=== PATIENT | male | born 1990 | race Caucasian/White ===

== ENCOUNTER 2021-03-07 09:44 | Outpatient (REF) | payer OTHER, SELFPAY ==
[2021-03-07 11:33] LABS: Appearance Urine CLEAR; Color Urine YELLOW; Glucose Urine UA NEG (NEG); Leukocyte Esterase Urine NEG (NEG); Nitrite Urine NEG (NEG); Specific Gravity - Urine >= 1.030 (1.005-1.025); Urine Blood NEG (NEG); Urine Ketones NEG (NEG); Urine Protein NEG (NEG-TRACE)
[2021-03-07 13:45] LABS: CT PCR NOT DETECTED (Not Detect.); NG PCR NOT DETECTED (Not Detect.)
== END 2021-03-07 09:45 | disposition home or self-care (01) ==
LOC: HO.WFDLNP 09:44
PROVIDERS: Visit Provider Family Medicine
DX: N50.811 Right testicular pain (principal); Z11.3 Encounter for screening for infections with a predominantly sexual mode of transmission
CPT/HCPCS: 81003; 87491; 87591

== ENCOUNTER 2021-03-12 08:51 | Outpatient (REF) | payer OTHER, SELFPAY ==
--- NOTE | ~2021-03-12 | US_ITS ---
EXAMINATION: US SCROTUM CLINICAL INFORMATION: Right testicular pain. COMPARISON: None TECHNIQUE: A sonogram of the scrotum was performed assessing damon-scale appearance and color Doppler flow. Spectral Doppler analysis of the arterial and venous flow were performed in the testes bilaterally. FINDINGS: RIGHT: Right testicle measures 5.39 x 2.38 x 3.71 cm, volume 24.9 mL. No focal testicular parenchymal lesions are visualized. Spectral Doppler analysis of the arterial and venous flow is normal in the right testis. Right epididymal head is normal in size. No right hydrocele seen. There is a small varicocele visualized. Right epididymal Doppler flow is normal. LEFT: Left testicle measures 5.60 x 2.34 x 4.43 cm, volume 30.3 mL. No focal testicular parenchymal lesions are visualized. Spectral Doppler analysis of the arterial and venous flow is normal in the left testis. Left epididymal head is normal in size. There is a small hydrocele with debris and a small left varicocele. Left epididymal Doppler flow is normal. US/US scrotum IMPRESSION: Normal right testes and epididymis with normal arterial and venous vascular flow on Doppler. Bilateral varicoceles and a small hydrocele with echogenic debris.
== END 2021-03-12 08:52 | disposition home or self-care (01) ==
LOC: HO.US 08:51
PROVIDERS: PCP Family Medicine
DX: N50.811 Right testicular pain (principal)
CPT/HCPCS: 76870

== ENCOUNTER 2023-11-06 09:35 | Outpatient (AMB) | payer OTHER, SELFPAY ==
--- NOTE | 2023-11-06 09:38 | MHC.OFFWIV ---
Intake Vital Signs 11/06/23 09:44 Height 5 ft 10 in Weight 145 lb 8 oz BMI 20.9 BP 110/72 Blood Pressure Location Rt brachial Position Sitting Respiration 16 Pulse 97 Pulse Source Pulse Oximeter Temp 97.3 F Temp Source Oral Pulse Oximetry (%) 96 Oxygen Delivery Method Room Air Intake Visit Reasons: est/left shoulder pain Intake Note: patient here c/o left shoulder pain Patient Tobacco Use Status: Never used Tobacco Allergies No Known Allergies Allergy (Verified 11/06/23 09:57) Medication List - Last Reconciled 11/06/23 by Rozina Marshall CNP No Known Home Meds Do you need a note to return to daycare/school/sports/work: No HPI HPI Comments History of Present Illness Details 33-year-old male presents with complaints of left shoulder pain slight intermittent pain with clicking/popping sound with certain movements. He notes that his symptoms have been ongoing since he injured right shoulder while playing rugby 2 weeks ago. His opponent ran into his shoulder. He endorses full ROM of the shoulder. No redness, swelling, or deformity. No tingling, numbness, or loss of sensation. He took ibuprofen 600 mg once, for 2 days without relief. [facility] Surgical History (Updated 03/07/21 @ 08:55 by GUILHERME Brown) No pertinent past surgical history Family History Mother No problems noted. Father No problems noted. Sister Substance abuse Maternal Uncle Substance abuse Social History (Updated 03/07/21 @ 08:56 by GUILHERME Brown) Housing: Apartment Alcohol intake: current Alcohol intake frequency: a few times a week Patient Tobacco Use Status: Never used Tobacco e-Cigarette/Vaping Use: Never Used Second Hand Smoke Exposure: No service: No Current occupational status: employed Cognitive needs: No Hearing needs: No Vision needs: No Review of Systems Const Details: Const Denies chills, Denies fatigue, Denies fever(s), Denies headache(s) and Denies weakness ENT Denies change in vision, Denies dizziness, Denies headache(s), Denies hearing loss, Denies nasal congestion, Denies sinus pain, Denies sinus pressure and Denies sore throat Resp Denies cough, Denies dyspnea, Denies wheezing and Denies other (shortness of breath) Cardio Denies chest pain, Denies lightheadedness, Denies dyspnea and Denies other (palpitations) Neuro Denies dizziness, Denies headache(s), Denies numbness, Denies tingling and Denies weakness Musc Reports as per HPI Endo Denies fatigue Aller/Immun Denies wheezing Physical Exam Vital Signs: Last Vital Signs Temp 97.3 F 11/06/23 09:44 Pulse 97 11/06/23 09:44 Resp 16 11/06/23 09:44 BP 110/72 11/06/23 09:44 Pulse Ox 96 11/06/23 09:44 Oxygen Delivery Method Room Air 11/06/23 09:44 BMI result Body Mass Index 20.9 Const Other: Const General: well developed; No acute distress Nutritional Appearance: well nourished Orientation/consciousness: patient oriented x3 HEENT Head: Yes normocephalic and Yes atraumatic Eyes General: appearance normal, both eyes and all related structures Pupils: Equal, round and reactive pupils present EOM: EOMs intact bilaterally Resp Effort & Inspection: normal respiratory effort Auscultation: clear to auscultation bilaterally Cardio Rate: regular rate Rhythm: regular rhythm Heart sounds: S1 normal heart sound present, S2 normal heart sound present, no gallops, no murmurs and no rubs Bruits: no abdominal aortic bruits and no carotid bruits Neuro General: patient oriented x3 and gait normal, no focal neuro deficit Cranial nerves: Yes Equal, round and reactive pupils present Musc Full ROM of the right shoulder, mild tenderness to palpation of the left trapezius muscle, no overt injury/trauma Psych Affect: normal affect Assessment & Plan Assessment & Plan (1) Muscle strain of shoulder region: Code(s): S46.919A - Strain of unspecified muscle, fascia and tendon at shoulder and upper arm level, unspecified arm, initial encounter Plan: Full ROM of the right shoulder, mild tenderness to palpation of the left trapezius muscle, no overt injury/trauma Likely left trapezius muscle strain May take ibuprofen 600 mg every 6-8 hours as needed. Encouraged to take with food Warm/cool compresses encouraged Follow-up with worsening or new symptoms Verbalized understanding and agreed with the plan Coding Level of Care Code Est Pt Level 3 (09847) Diagnoses Muscle strain of shoulder region S46.919A
[2023-11-06 09:44] VITALS: BP 110/72; PULSE 97; RESP 16; TEMP 36.3; O2SAT 96; BMI 20.9
== END 2023-11-06 11:17 | disposition home or self-care (01) ==
PROVIDERS: PCP Family Medicine; Visit Provider Nurse Practitioner Family
DX: S46.919A Strain of unspecified muscle, fascia and tendon at shoulder and upper arm level, unspecified arm, initial encounter (principal)

== ENCOUNTER → 2023-11-06 09:35 | Outpatient (BNVA) | payer OTHER, SELFPAY | PROVIDERS: PCP Family Medicine | DX: S46.911A Strain of unspecified muscle, fascia and tendon at shoulder and upper arm level, right arm, initial encounter (principal) | CPT/HCPCS: 99212 ==

== ENCOUNTER 2024-01-20 11:27 | Outpatient (AMB) | payer OTHER, SELFPAY ==
--- NOTE | 2024-01-20 11:47 | MHC.PC.OV ---
Vital Signs 01/20/24 11:49 Height 5 ft 10 in Weight 148 lb 6 oz BMI 21.3 BP 120/58 L Blood Pressure Location Lt brachial Position Sitting Respiration 14 Pulse 68 Pulse Source Pulse Oximeter Pulse Oximetry (%) 98 Oxygen Delivery Method Room Air Intake Visit Reasons: PainOnShoulder Intake Note: left shoulder pain due to a injury playing rugby Allergies No Known Allergies Allergy (Verified 01/20/24 11:49) Tobacco use date assessed: 03/07/21 HPI PainOnShoulder HPI Details 33 y/o male presents today with complaints of L shoulder pain. Had seen Rozina Marshall 11/06/23 - was recommended to take ibuprofen, warm/cool compresses were encouraged. Had noted he had injured L shoulder playing rugby. Someone had ran right unto his shoulder. Denies any numbness/weakness of hands. Pain has not improved with warm/cool compresses. HPI Comments History of Present Illness Details Documentation assistance for Adi Min MD, was provided by Onesimo Carmichael, [employer] on 01/20/2024 at 12:35 PM EST. I, Dr. Min, have read, observed, and verified documentation. ON LICENSE OF [facility] Surgical History (Updated 03/07/21 @ 08:55 by GUILHERME Brown) No pertinent past surgical history Family History Mother No problems noted. Father No problems noted. Sister Substance abuse Maternal Uncle Substance abuse Social History (Updated 03/07/21 @ 08:56 by GUILHERME Brown) Housing: Apartment Alcohol intake: current Alcohol intake frequency: a few times a week Patient Tobacco Use Status: Never used Tobacco e-Cigarette/Vaping Use: Never Used Second Hand Smoke Exposure: No service: No Current occupational status: employed Cognitive needs: No Hearing needs: No Vision needs: No Questionnaire PHQ-9 Over the last 2 weeks, how often have you been bothered by any of the following problems? 1. Little interest or pleasure in doing things: several days 2. Feeling down, depressed, or hopeless: several days 3. Trouble falling or staying asleep, or sleeping too much: several days 4. Feeling tired or having little energy: not at all 5. Poor appetite or overeating: not at all 6. Feeling bad about yourself - or that you are a failure or have let yourself or your family down: not at all 9. Thoughts that you would be better off or of hurting yourself in some way: not at all Source: Developed by Drs. Contreras Santiago, Siria Sneed, Easton Schmitt and colleagues, with an educational lyn from [employer]. Thrive Questionnaire Date Thrive assessed: 01/13/24 I am a: Patient What is your living situation today?: I have a steady place to live Within the past 12 months, did the food you bought not last and you didn't have the money to get more?: Never true Within the past 12 months, did you worry whether your food would run out before you got money to buy more?: Never true Do you have trouble paying for medicines?: No Do you have trouble getting transportation to medical appointments?: No Do you have trouble paying your heating and electricity bill?: No Do you have trouble taking care of your child, family member or friend?: No Do you have trouble with day-to-day activities such as bathing, preparing meals, shopping, managing finances, etc.?: No Are you currently unemployed and looking for a job?: Yes Are you interested in more education?: No Please select the resources that you would like help with: None Currently or been in a relationship where the following occur: No concerns reported THRIVE Score: 0 AUDIT C Alcohol Use Questionnaire (AUDIT-C) 1. How often do you have a drink containing alcohol?: 2-3 times a week 2. How many drinks containing alcohol do you have on a typical day when you are drinking?: 1 or 2 3. How often do you have six or more drinks on one occasion?: Monthly Total Score: 5 LIZZ-7 AMB Questionnaire LIZZ-7 Date LIZZ - 7 assessed: 03/07/21 Feeling nervous, anxious, or on edge: 0 = Not at all Not being able to stop or control worryin = Not at all Worrying too much about different things: 1 = Several days Trouble relaxin = Several days Being so restless that it is hard to sit still: 1 = Several days Becoming easily annoyed or irritable: 1 = Several days Feeling afraid as if something awful might happen: 0 = Not at all Total LIZZ-7 score (0-4 normal; 5-9 mild; 10-14 moderate; 15-21 severe): 4 Source: Developed by Drs. Contreras Santiago, Siria Sneed, Easton Schmitt and colleagues, with an educational lyn from [employer]. Review of Systems Const Denies chills, Denies fatigue, Denies fever(s), Denies headache(s) and Denies weakness ENT Denies dizziness and Denies headache(s) Card Denies dyspnea Resp Denies cough, Denies dyspnea, Denies wheezing and Denies other (shortness of breath) Musc Details: L shoulder pain Denies numbness and Denies tingling Neuro Denies dizziness, Denies headache(s), Denies numbness, Denies tingling and Denies weakness Psych Denies anxiety and Denies depression Endo Denies fatigue Aller/Immun Denies wheezing Physical exam (Primary Care) Vital Signs: Last Vital Signs Pulse 68 01/20/24 11:49 Resp 14 01/20/24 11:49 BP 120/58 L 01/20/24 11:49 Pulse Ox 98 01/20/24 11:49 Oxygen Delivery Method Room Air 01/20/24 11:49 BMI result Body Mass Index 21.3 Tobacco/Smoking Status: Tobacco use Status Tobacco use date assessed 03/07/21 01/20/24 11:52 Patient Tobacco Use Status Never used Tobacco 01/20/24 11:52 e-Cigarette/Vaping Use Never Used 01/20/24 11:52 Thrive Assessment: Date of Thrive Assessment Date Thrive assessed 01/13/24 01/20/24 11:52 Currently or been in a relationship where the following occur: No concerns reported Const General: well developed; No acute distress Nutritional Appearance: well nourished Orientation/consciousness: patient oriented x3 HENMT Head: Yes normocephalic and Yes atraumatic Eyes General: appearance normal, both eyes and all related structures Pupils: Equal, round and reactive pupils present EOM: EOMs intact bilaterally Resp Effort & Inspection: normal respiratory effort Neuro General: patient oriented x3 and gait normal Cranial nerves: Yes Equal, round and reactive pupils present Psych Affect: normal affect Coding Level of Care Code Est Pt Level 3 (05190) Diagnoses Left shoulder pain M25.512 Assessment & Plan Assessment & Plan (1) Left shoulder pain: Code(s): M25.512 - Pain in left shoulder Category: Medical Plan Ongoing?left?shoulder?pain?after?injury?playing?rugby. Good?range?motion. ?Normal?sensation,?motor?and?circulation?at?distal?fingertips. Start?physical?therapy Check?x-ray Give?him?a?script?for?meloxicam?and?cyclobenzaprine Follow-up?in?4-6?weeks.??If?not?improving?or?worsening?will?refer?to?ortho?and?consider?advanced imaging Orders: Orders PT Evaluation and Treatment Today M25.512 - Pain in left shoulder XR shoulder LT min 2V Today M25.512 - Pain in left shoulder PT Evaluation and Treatment Today M25.512 - Pain in left shoulder Medications: New meloxicam 15 mg PO DAILY 30 days 30 tabs 2RF cyclobenzaprine 10 mg PO Q12H 10 days PRN 20 tabs 0RF muscle spasm
[2024-01-20 11:49] VITALS: BP 120/58; PULSE 68; RESP 14; O2SAT 98; BMI 21.3
--- OUTSIDE RECORDS SUMMARY | 2024-01-27 13:25 | XMS_ITS | Data Portability ---
Author Organization [facility] [id number] Address [address] [place] [id number] Assessment Encounter Date Assessment Date Assessment LastModified by Organization Details LastModified Time 11/03/2023 11/03/2023 How can you care for yourself at home? If your doctor put a splint on your finger, wear the splint as directed. Don't remove it until your doctor says it's okay. If your fingers are taped together, make sure that the tape is snug. But it shouldn't be so tight that the fingers get numb or tingle. You can loosen the tape if it's too tight. If you need to retape your fingers, always put padding between the fingers before you put on the new tape. Put ice or a cold pack on your finger for 10 to 20 minutes at a time. Try to do this every 1 to 2 hours for the first 3 days (when you are awake) or until the swelling goes down. Put a thin cloth between the ice and your skin. Prop up your hand on a pillow when you ice it or anytime you sit or lie down during the next 3 days. Try to keep it above the level of your heart. This will help reduce swelling. Be safe with medicines. Read and follow all instructions on the label. If the doctor gave you a prescription medicine for pain, take it as prescribed. If you are not taking a prescription pain medicine, ask your doctor if you can take an [id number]-[id number] r medicine. If your doctor recommends exercises, do them as directed. ??? Seek immediate medical care if: ??? You have new or worse pain. Your finger is cool or pale or changes color. Your finger is tingly, weak, or numb. [email or web address] Not available 11/03/2023 14:14:45 Plan of Treatment Reminders Order Date Submit Date Provider Last Modified By Organization Details Last Modified Time Details Appointments None recorded. Lab None recorded. Referral None recorded. Procedures None recorded. Surgeries None recorded. Imaging XR, finger(s), 2 or more view 2023 [facility], [address] [place], [address], 14:37:55 Medication Orders naproxen 500 mg tablet 2023 024 [id number], [address] [place], [address], 14:14:48 Patient TargetsNo targets recorded. Patient InstructionsNo instructions recorded. Reason for Referral None Reported. Results Created Date Observation Date Name Description Value Unit Range Abnormal Flag Note LastModifiedBy Organization Detail LastModifiedTime 11/03/19 24 11/03/2023 XR, finge r(s), 2 or more view No observ ation record ed. [facility] [address] [place], [address], 11/04/2023 11:40:31 11/03/19 XR, finge r(s), 2 or more view No observ ation record ed. [facility] [address] [place], [address], 11/03/2023 19:03:10 Result Notes None recorded. Problems Name Problem SNOMED Code Status Onset Date Resolution Date Notes Provider Name and Address Organization Details Recorded Time Pain in finger of right hand 042338731653432 Active 2023 NANCY DUEÑAS NP [address] [place], [phone], [place] [facility] 13:55:33 Sprain of ligament of finger of right hand 478025078692717 01 Active 2023 NANCY DUEÑAS NP [address] [place], [address] [facility] - [facility] 4 14:13:54 Problem Notes None recorded. Procedures Surgical History None recorded. Imaging Results Imaging Date Name Status LastModified by Organiz ation Details LastModified Time 11/03/2023 XR, finger(s), 2 or more view completed frantz [facility] [address] [place], [address], 11/04/2023 11:40:31 11/03/2023 XR, finger(s), 2 or more view completed colette [facility] [address] [place], [address], 11/03/2023 19:03:10 Procedure Notes None recorded. Medical Equipment None Reported. Allergies No known drug allergies Medications Name Sig Start Date Stop Date Status Note LastModified by Organization Details LastModified Time IBU 800 mg tablet TAKE ONE TABLET BY MOUTH THREE TIMES A DAY NEEDED FOR PAIN 11/02 completed Not Available Not Available Not Available amoxicillin 500 mg tablet TAKE ONE TABLET BY MOUTH THREE TIMES A DAY UNTIL GONE 11/02 completed Not Available Not Available Not Available naproxen 500 mg tablet Take 1 tablet twice a day by oral route for 5 days. 2023 active Not Available Not Available Not Avai lable Vitals Date Recorded Body height Body mass index (BMI) Body weight Oxygen saturation Oxygen saturation in Arterial blood by Pulse oximetry Heart rate Respiratory rate Body temperature Systolic blood pressure Diastolic blood pressure Provider Name and Address Organization Details Last Updated DateTime 4 177.8 cm 20.8 kg/m2 57961.8 9 g 97 % 97 % 74 /min 18 /min 98.6 [degF] 125 mm[Hg] 78 mm[Hg] Pavithra Obrien PA - [facility] 4 12:32:38 Social History Question Answer Notes LastModified by Organizat ion Details LastModified Time Tobacco Smoking Status Never Smoker Pavithra quick PA - [facility] 11/03/2023 12:34:17 What Is Your Level Of Alcohol Consumption? None Information not available 11/03/2023 Are You Currently Employed? No Information not available 11/03/2023 Which Illicit Or Recreational Drugs Have You Used? Marijuana Information not available 11/03/2023 Do You Use Any Illicit Or Recreational Drugs? Yes Information not available 11/03/2023 Do You Or Have You Ever Used Any Other Forms Of Tobacco Or Nicotine? No Information not available 11/03/2023 Sex: Unknown Functional Status None recorded. Mental Status None recorded. Family History Relationship Description Onset Age of this Age Resolved Age Notes LastModified by Organization Details LastModified Time Father No current problems or disability Not available 11/02 12:33:21 Mother No current problems or disability Not available 11/02 12:33:21 Medical History No medical history recorded. Immunizations Vaccine Type Date Status Note Provider Nam e and Address Organization Details Recorded Time IPV 3 completed Pavithra Micah null, PA - [facility] 11/03/2023 12:32:58 IPV 3 completed Pavithra Micah null, PA - [facility] 11/03/2023 12:32:58 IPV 8 completed Pavithra Micah null, PA - [facility] 11/03/2023 12:32:58 IPV 5 completed Pavithra Micah null, PA - [facility] 11/03/2023 12:32:58 MMR 4 completed Pavithra Micah null, PA - [facility] 11/03/2023 12:32:58 MMR 8 completed Pavithra Micah null, PA - [facility] 11/03/2023 12:32:58 Tdap 0 completed Pavithra Micah null, PA - [facility] 11/03/2023 12:32:58 DTP 4 completed Pavithra Micah null, PA - [facility] 11/03/2023 12:32:58 DTP 3 completed Pavithra Micah null, PA - [facility] 11/03/2023 12:32:58 DTP 3 completed Pavithra Micah null, PA - [facility] 11/03/2023 12:32:58 DTP 5 completed Pavithra Micah null, PA - [facility] 11/03/2023 12:32:58 Influenza, split virus, trivalent, preservative 3 completed Pavithra Micah null, PA - [facility] 11/03/2023 12:32:58 Influenza, split virus, trivalent, preservative 6 completed Pavithra Micah null, PA - [facility] 11/03/2023 12:32:58 Td (adult), 2 Lf tetanus toxoid, preservative free, adsorbed 4 completed Pavithra Micah null, PA - [facility] 11/03/2023 12:32:58 Hep B, adolescent or pediatric 4 completed Pavithra Micah null, PA - [facility] 11/03/2023 12:32:58 Hep B, adolescent or pediatric 3 completed Pavithra Micah null, PA - [facility] 11/03/2023 12:32:58 Hep B, adolescent or pediatric 3 completed Pavithra Micah null, PA - [facility] 11/03/2023 12:32:58 Hib (HbOC) 4 completed Pavithra Micah null, PA - [facility] 11/03/2023 12:32:58 Hib (HbOC) 3 completed Pavithra Micah null, PA - [facility] 11/03/2023 12:32:58 Hib (HbOC) 4 completed Pavithra Micah null, PA - [facility] 11/03/2023 12:32:58 Hib (HbOC) 3 completed Pavithra Micah null, PA - [facility] 11/03/2023 12:32:58 meningococcal MCV4P 2 completed Pavithra Micah null, PA - [facility] 11/03/2023 12:32:58 DTaP 8 completed Pavithra Micah null, PA - [facility] 11/03/2023 12:32:58 Past Encounters Encounter ID Performer Location Encounter Start Date Encounter Closed Date Diagnosis/Indication Diagnosis SNOMED-CT Code Diagnosis ICD10 Code [id number] [address] [place] [id number] 01/19/2021 16:08:39 01/19/2021 17:34:09 [id number] [address] [place] [id number] 09/22/2018 15:52:58 09/22/2018 16:08:22 [id number] [address] [place] [id number] 7 06/26/2018 11:03:42 06/26/2018 12:02:36 [id number] [address] [place] [id number] 7 11/06/2018 11:35:13 11/06/2018 13:25:33 [id number] [facility] [address] [place] [id number] 10/31/2018 16:45:27 10/31/2018 17:38:58 [id number] NANCY DUE[facility]AS [facility] [address] [place] [id number] 11/03/2023 11:24:39 11/03/2023 14:24:50 Pain in finger of right hand 4918505297 62031 M79.644 Sprain of ligament of finger of right hand 6923136158 [id number] S63.614A Health Concerns Section Related Observation LastModified by Organization Detai ls LastModified Time None Recorded Concern Status LastModified by Organization Details LastModified Time None Recorded Advance Directives Directive None Recorded Payers Encounter Date Sequence Insurance Name Policy Number Policy Jacobsen Covered Member ID Jacobsen Member ID Guarantor Name 11/03/2023 1 [employer] (MEDICAID HMO) [id number] James Rice [id number] James Rice Notes Date Note Type Note Provider Name and Address Organization Details Recorded Time 11/03/2023 text/html pt is a 33 yo ma le her for evaluation for right hand 4t digit painws injured playing rugbyjammed finger to ballhas had injury to same finger many years backno fever and no chillmild pain, swelling NANCY DUEÑAS NP [address] [place], [address], [place] - [facility] 11/03/2023 15:44:06
--- OUTSIDE RECORDS SUMMARY | 2024-01-27 13:25 | XMS_ITS | Continuity of Care Document ---
Author Organization R[facility]ac[facility] Address [address] [place] [address] Assessment Encounter Date Assessment Date Assessment LastModified [...] your doctor if you can take an ukpb-lbs-vmepyr r medicine. If your doctor recommends exercises, [...] XR, finger(s), 2 or more view 2023 [place] [facility], [address] [place], [address], 14:37:55 Medication Orders naproxen 500 mg tablet 2023 [place] [id number], [address] [place], [address], 14:14:48 Patient TargetsNo targets recorded. Patient InstructionsNo instructions recorded. Reason for Referral None Reported. Results Created Date Observation Date Name Description Value Unit Range Abnormal Flag Note LastModifiedBy Organization Detail LastModifiedTime 11/03/19 24 11/03/2023 XR, finge r(s), 2 or more view No observ ation record ed. [email or web address] [address] [place], [address], 11/04/2023 11:40:31 11/03/19 XR, finge r(s), 2 or more view No observ ation record ed. [email or web address] [facility] [address] [place], [place], [address], 11/03/2023 19:03:10 Result Notes None recorded. Problems Name Problem SNOMED Code Status Onset Date Resolution Date Notes Provider Name and Address Organization Details Recorded Time Pain in finger of right hand 958337836876087 Active 2023 NANCY DUEÑAS NP [address] [place], [address], [place] - [facility] 13:55:33 Sprain of ligament of finger of right hand 432455515758694 01 Active 2023 NANCY DUEÑAS NP [address] [place], [address] [email or web address] 14:13:54 Problem Notes None recorded. Medical Equipment None Reported. [...] and Address Organization Details Last Updated DateTime 177.8 cm 20.8 kg/m2 41705.8 9 g 97 % 97 % 74 /min 18 /min 98.6 [degF] 125 mm[Hg] 78 mm[Hg] Pavithra Obrien [place] [facility] 12:32:38 Social History Question Answer Notes LastModified by Organizat ion Details LastModified Time Tobacco Smoking Status Never Smoker Pavithra uqick PA - [facility] 11/03/2023 12:34:17 What [...] history recorded. Immunizations Vaccine Type Date Status Provider Name and Address Organization Details Recorded Time IPV 1992 completed Pavithra Micah null, PA - [facility] 11/03/2023 12:32:58 IPV 1992 completed Pavithra Micah null, PA - [facility] 11/03/2023 12:32:58 IPV 10/21/1997 completed Pavithra Micah null, PA - [facility] 11/03/2023 12:32:58 IPV 10/23/1994 completed Pavithra Micah null, PA - [facility] 11/03/2023 12:32:58 MMR 09/21/1993 completed Pavithra Micha null, PA - [facility] 11/03/2023 12:32:58 MMR 10/21/1997 completed Pavithra Micah null, PA - [facility] 11/03/2023 12:32:58 Tdap 05/04/2009 completed Pavithra Micah null, PA - [facility] 11/03/2023 12:32:58 DTP 04/05/1993 completed Pavithra Micah null, PA - [facility] 11/03/2023 12:32:58 DTP 1992 completed Pavithra Micah null, PA - [facility] 11/03/2023 12:32:58 DTP 1992 completed Pavithra Micah null, PA - [facility] 11/03/2023 12:32:58 DTP 10/23/1994 completed Pavithra Micah null, PA - [facility] 11/03/2023 12:32:58 Influenza, split virus, trivalent, preservative 12/11/2012 completed Pavithra Micah null, PA - [facility] 11/03/2023 12:32:58 Influenza, split virus, trivalent, preservative 01/09/2016 completed Pavithra Micah null, PA - [facility] 11/03/2023 12:32:58 Td (adult), 2 Lf tetanus toxoid, preservative free, adsorbed 03/16/2003 completed Pavithra Micah null, PA - [facility] 11/03/2023 12:32:58 Hep B, adolescent or pediatric 04/05/1993 completed Pavithra Micah null, PA - [facility] 11/03/2023 12:32:58 Hep B, adolescent or pediatric 1992 completed Pavithra Micah null, PA - [facility] 11/03/2023 12:32:58 Hep B, adolescent or pediatric 1992 completed Pavithra Micah null, PA - [facility] 11/03/2023 12:32:58 Hib (HbOC) 04/05/1993 completed Pavithra Micah null, PA - [facility] 11/03/2023 12:32:58 Hib (HbOC) 1992 completed Pavithra Micah null, PA - [facility] 11/03/2023 12:32:58 Hib (HbOC) 09/21/1993 completed Pavithra Micah null, PA - [facility] 11/03/2023 12:32:58 Hib (HbOC) 1992 completed Pavithra Micah null, PA - [facility] 11/03/2023 12:32:58 meningococcal MCV4P 12/30/2001 completed Pavithra Alb erts null, PA - [facility] 11/03/2023 12:32:58 DTaP 10/21/1997 completed Pavithra Micah null, PA - [facility] 11/03/2023 12:32:58 Past Encounters Encounter ID Performer Location Encounter Start Date Encounter Closed Date Diagnosis/Indication Diagnosis SNOMED-CT Code Diagnosis ICD10 Code [id number] NANCY DUEÑAS NP [address] [address] [address] 11/03/2023 11:24:39 11/03/2023 14:24:50 Pain in finger of right hand 4059983981 43995 M79.644 Sprain of ligament of finger of right hand 9197392392 4122730 S63.614A Health Concerns Section Related Observation LastModified by Organization Detai ls LastModified Time None Recorded Concern Status LastModified by Organization Details LastModified Time None Recorded Payers Encounter Date Sequence Insurance Name Policy Number Policy Jacobsen Covered Member ID Jacobsen Member ID Guarantor Name 11/03/2023 1 [facility] [employer] - [employer] (MEDICAID HMO) [id number] James Rice [id number] James Rice Notes Date Note Type Note Provider Name and Address Organization Details Recorded Time 11/03/2023 text/html pt is a 33 yo ma le her for evaluation for right hand 4t digit painws injured playing rugEverplacesmmed finger to ballhas had injury to same finger many years backno fever and no chillmild pain, swelling NANCY DUEÑAS NP [address] [place], [address], [place] - [facility] 11/03/2023 15:44:06
== END 2024-01-20 12:40 | disposition home or self-care (01) ==
PROVIDERS: PCP Family Medicine; Visit Provider Family Medicine
DX: M25.512 Pain in left shoulder (principal)

== ENCOUNTER 2024-01-20 11:27 | Outpatient (REF) | payer OTHER, SELFPAY | END 2024-01-20 11:28 | disposition home or self-care (01) | LOC: HO.HMGCX 11:27 | PROVIDERS: PCP Family Medicine; Visit Provider Family Medicine | DX: M25.512 Pain in left shoulder (principal) | CPT/HCPCS: 73030; 99212 ==

== ENCOUNTER 2024-03-03 11:45 | Outpatient (RCR) | payer OTHER, SELFPAY ==
--- NOTE | 2024-03-01 12:23 | MHC.PT.EP ---
[facility] [place] Office [place] [facility] [place] Office [address] Carlos Todd [address] [phone] F: [phone] F: [phone] F: [phone] F: [phone] Physical Therapy Plan of Care Date of Evaluation: 03/01/24 Date of Surgery: Diagnosis: PT eval and treat, Left shoulder pain M25.512 date of script 01/21/24 Dr Min Assessment: Pt is a RHD 33 y/o male, referred to PT from PCP Dr. Min for treatment of L shoulder pain which began around when he was slammed from the front of his shoulder while playing rugby. Pt continued to play, saw urgent care a week later. Pt was sent for x-rays by PCP, taken on 01/20/24 (report still not read- communication with Dr. Min medical office representative Bailey who placed a call to inquire with radiology dept re: having them read, she made call to them on 03/01/24, today but was told it may take a few days yet). Pt exhibits impaired AROM of the L shoulder, exhibits decreased tolerance for weight-bearing through the L shoulder, and has shoulder impingement with AROM. He exhibits protracted scapular with rounded shoulders at baseline, decreased posterior glide on L vs R UE. Upon view of xray image, L shoulder appears to be sitting high in socket with decreased space between GH joint). Pt did not appear to exhibit a large step-off deformity for disruption of AC joint in physical exam but does have tenderness in this area. Pt exhibits decreased tolerance for exercise due to sx, reports sx anteriorly (no push-up/pull-ups). Pt would benefit from attending PT 2x/week x 4 weeks to address impairments, address postural scapular/RTC asymmetries, and restore mobility to PLOF. He is currently on break from Rugby (goal to return in April). Pt was intiiated in AAROM shoulder ROM (flexion cane supine), resisted ER in SL, resisted ER in standing (YTB, pain-free, yet challenged), and iso scap retractions/impact of posture. He was educated re: goals of therapy, findings of evaluation, and indications for treatment). Frequency and Duration: The patient will be seen 2x/week x 4 weeks Short Term Goals: 1. Pt will demonstrate AROM L shoulder flexion to 140 degrees. 2. Pt will demonstrate AROM L shoulder abduction to 140 degrees. 3. Pt will demonstrate initiation of self care program. 4. Pt will demonstrate postural awareness. Employment Programs Analyst Goals: 1. Pt will demonstrate L shoulder ER to 5/5. 2. Negative impingement testing of the L shoulder. 3. I HEP. 4. Pt will resume weight-bearing activities like push-up MOD I. 5. Demonstrate good body mechanics MOD I with lifting at work. Treatment Plan: Modalities to reduce pain, spasms and effusion. Manual therapy to restore motion and function. Therapeutic exercise to improve strength and flexibility. Neuromuscular re-education for posture and balance. Therapeutic activities to return to functional activities of daily living. Electronically signed by: Peace Caldera, PT, DPT Please sign and return to therapist. Thank you for your referral.
== END 2024-04-12 09:54 | disposition home or self-care (01) ==
LOC: HO.PTWFD 11:45
PROVIDERS: PCP Family Medicine; Visit Provider Family Medicine
DX: M25.512 Pain in left shoulder (principal)
CPT/HCPCS: 97110; 97140; 97161; 97535